=== PATIENT | female | born 1955 | race Caucasian/White ===

== ENCOUNTER → 2016-09-29 | Outpatient (CLI) | payer BC | END | disposition home or self-care (01) | LOC: C.PAPS 12:28 | PROVIDERS: ATTEND Obstetrics & Gynecology | DX: Z01.419 Encounter for gynecological examination (general) (routine) without abnormal findings (principal) ==

== ENCOUNTER → 2016-10-19 | Outpatient (CLI) | payer BC ==
--- NOTE | 2016-10-19 13:31 | DIAGNOSTIC IMAGING REPORT ---
RIGHT SHOULDER MIN 2 VIEWS ROUTINE HISTORY: 61 years-old Female acute right shoulder pain status post trauma. COMPARISON: None available TECHNIQUE: 3 views of the right shoulder FINDINGS: There is an acute mildly impacted fracture of the proximal right humerus with fractures involving the inferior aspect of the greater tuberosity, the surgical neck and possibly the anatomic neck as well. No definite lesser tuberosity fracture identified. No glenohumeral displacement. Mild soft tissue swelling is seen about the shoulder. 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 Imaged lung arellano are clear. IMPRESSION: Acute mildly impacted fracture of the proximal right humerus with fracture primarily involving the surgical neck. The above report was generated using voice recognition software. It may contain grammatical, syntax or spelling errors. Electronically signed by: Erik Duran M.D. 10/19/2016 1:29 PM Dictated Date/Time: 10/19/2016 1:25 PM
== END | disposition home or self-care (01) ==
LOC: C.RADBC 13:06
PROVIDERS: ATTEND Nurse Practitioner
DX: M79.601 Pain in right arm (principal); S49.91XA Unspecified injury of right shoulder and upper arm, initial encounter; X58.XXXA Exposure to other specified factors, initial encounter

== ENCOUNTER → 2016-10-25 | Outpatient (CLI) | payer BC ==
--- NOTE | 2016-10-25 15:38 | DIAGNOSTIC IMAGING REPORT ---
RIGHT SHOULDER MIN 2 VIEWS CLINICAL HISTORY: 61 years-old Female presenting with RIGHT PROXIMAL HUMERUS FX. RIGHT FA PAIN Right. TECHNIQUE: Internal rotation and transcatheter Y views of the right shoulder were obtained. COMPARISON: 10/19/2016. FINDINGS: The mildly impacted fracture of the surgical neck of the right humerus. No significant interval callus formation. There may be greater anterior displacement of the distal fracture fragment relative to the humeral head. Humeral head remains congruent with the glenoid fossa. Acromioclavicular joint congruent. Visualized portion of the right hemithorax normal. IMPRESSION: Slight interval increase in anterior displacement of the distal fracture fragment relative to the humeral head. Electronically signed by: Jam Degroot M.D. 10/25/2016 3:36 PM Dictated Date/Time: 10/25/2016 3:34 PM
--- NOTE | 2016-10-25 15:39 | DIAGNOSTIC IMAGING REPORT ---
RIGHT FOREARM 2 VIEWS CLINICAL HISTORY: RIGHT PROXIMAL HUMERUS FX. RIGHT FA PAIN Right pain COMPARISON: None. DISCUSSION: The bones and joint spaces appear intact. There is no evidence of fracture, dislocation or bony disease. There is no evidence for soft tissue swelling. IMPRESSION: Negative study. The above report was generated using voice recognition software. It may contain grammatical, syntax or spelling errors. Electronically signed by: Beau Santoyo M.D. 10/25/2016 3:37 PM Dictated Date/Time: 10/25/2016 3:36 PM
== END | disposition home or self-care (01) ==
LOC: C.RDSM 15:35
PROVIDERS: ATTEND Family Medicine
DX: M79.601 Pain in right arm (principal)

== ENCOUNTER → 2016-11-15 | Outpatient (CLI) | payer BC ==
--- NOTE | 2016-11-15 15:27 | DIAGNOSTIC IMAGING REPORT ---
RIGHT SHOULDER MIN 2 VIEWS CLINICAL HISTORY: F/U RIGHT SHOULDER FX Right fracture COMPARISON: 10/25/2016 DISCUSSION: Fracture humeral head and neck again noted. Slight increase in anterior angulation of the humeral fracture. No evidence of dislocation. All remaining osseous structures are unremarkable. No significant callus formation at the current time. There is no evidence for soft tissue swelling. IMPRESSION: Slight increase in anterior angulation of the humeral neck fracture. No evidence for significant interval healing. No evidence for dislocation. The above report was generated using voice recognition software. It may contain grammatical, syntax or spelling errors. Electronically signed by: Beau Santoyo M.D. 11/15/2016 3:26 PM Dictated Date/Time: 11/15/2016 3:25 PM
== END | disposition home or self-care (01) ==
LOC: C.RDSM 09:47
PROVIDERS: ATTEND Family Medicine
DX: Z87.81 Personal history of (healed) traumatic fracture (principal)

== ENCOUNTER → 2016-12-06 | Outpatient (CLI) | payer BC ==
--- NOTE | 2016-12-06 15:16 | DIAGNOSTIC IMAGING REPORT ---
RIGHT SHOULDER 2 VIEWS HISTORY: Follow-up right humeral fracture. COMPARISON: Right shoulder 11/15/2016. FINDINGS: No dislocation. The right clavicle is intact. No change in the slightly angulated right humeral neck fracture. No significant callus formation. However, the fracture lines are less prominent suggestive of interval bony bridging/healing. No radiopaque foreign bodies. IMPRESSION: No change in alignment of the slightly angular right humeral neck fracture. There is suggestion of partial interval healing. Electronically signed by: Mazin Guo M.D. 12/06/2016 3:15 PM Dictated Date/Time: 12/06/2016 3:13 PM
== END | disposition home or self-care (01) ==
LOC: C.RDSM 14:54
PROVIDERS: ATTEND Family Medicine
DX: S42.301A Unspecified fracture of shaft of humerus, right arm, initial encounter for closed fracture (principal); X58.XXXA Exposure to other specified factors, initial encounter

== ENCOUNTER → 2017-01-03 | Outpatient (CLI) | payer BC ==
--- NOTE | 2017-01-03 15:11 | DIAGNOSTIC IMAGING REPORT ---
R SHOULDER MIN 2 VIEWS CLINICAL HISTORY: 61 years-old Female presenting with CLOSED FX OF RIGHT PROXIMAL HUMERUS. TECHNIQUE: Internal rotation, transscapular Y, and axillary views the right shoulder were obtained. COMPARISON: 12/06/2016. FINDINGS: Deformity from the previous right humeral neck fracture remains apparent with mild angulation and impaction. Bridging callus formation noted. No new malalignment. The humeral head is congruent with the glenoid. Acromioclavicular joint congruent. IMPRESSION: Continued interval healing of the mildly angulated and impacted right humeral neck fracture. Electronically signed by: Jam Degroot M.D. 01/03/2017 3:10 PM Dictated Date/Time: 01/03/2017 3:08 PM
== END | disposition home or self-care (01) ==
LOC: C.RDSM 14:25
PROVIDERS: ATTEND Family Medicine
DX: S42.201A Unspecified fracture of upper end of right humerus, initial encounter for closed fracture (principal); X58.XXXA Exposure to other specified factors, initial encounter